=== PATIENT | male | born 1985 | race African-American/Black ===

== ENCOUNTER 2018-01-07 20:02 | Emergency (ER) | payer SELFPAY ==
[2018-01-07] MEDS: IBUPROFEN 800 MG TABLET. PO (20:56)
[2018-01-07] MEDS: ACETAMINOPHEN 500 MG TABLET PO (20:56)
[2018-01-07] MEDS: PENICILLIN G BENZATHINE LA 1,200,000 UNIT/2 ML DISP.SYRIN. IM (20:57)
[2018-01-08 06:29] LABS: NEGATIVE OBC STREP NEG; POSITIVE OBC STREP POS
== END 2018-01-07 21:22 | disposition home or self-care (01) ==
LOC: ER 20:02
DX: J02.0 Streptococcal pharyngitis (principal); F17.210 Nicotine dependence, cigarettes, uncomplicated
CPT/HCPCS: 87880; 96372; 99283; J0561